=== PATIENT | male | born 1960 | race Caucasian/White ===

== ENCOUNTER 2016-08-21 13:22 | Day surgery (SDC) | payer BC ==
--- NOTE | ~2016-08-21 | OP ---
Record Of Operation [facility] [address] [place]. [address] NAME: SHEA BRADFORD : 56 STATUS : REG [facility] [place] PAT#: [id number] AGE: 56 ADM/REG DATE : 08/21/16 MR#: [id number] REPORT SERV DATE: 08/21/16 DICTATED BY: KERVIN MARTELL III DATE: 08/21/16 REPORT STATUS : Draft TRANSCRIBED BY: MODL DATE: 08/21/16 DATE OF PROCEDURE: 08/21/2016 PROCEDURE: I and D of scrotal abscess. PREOPERATIVE DIAGNOSIS: Scrotal abscess. POSTOPERATIVE DIAGNOSIS: Scrotal abscess. ANESTHESIA: General. SURGEON: Kervin Martell M.D. PROCEDURE IN DETAIL: Following induction of adequate general anesthesia, the patient was placed in the frogleg position, prepped and draped in a sterile fashion. The scrotal abscess had come to a hit, it was approximately 3 cm. An incision was made through this with approximately 5 mL to 10 mL of purulence. This was cultured. The wound was open enough to admit a finger and the area explored digitally. It was contained, did not appear to have any tracts into the scrotum itself. We irrigated. There were several bleeders that were cauterized and I probed it carefully with hemostat. Could not find any tracts. There was induration deep to the abscess cavity, but I could not find any communication with any other pocket of fluid. The wound was then packed with iodoform gauze. Mesh panties will be placed and I have discussed the care with the , who will repack the wound every 24 hours or as needed until I see him in the office on Wednesday. He was given vancomycin and Levaquin preop and Levaquin for the next five to six days. Blood loss was minimal. OB/MODL Kervin Martell III, M.D. / [id number] CC: Meaghan Delaney III, M.D.
[~2016-08-21 13:22] MED LIST: ACCUPRIL40 MG PO; ASAB PO; ATV1 PO; AVAP150 PO; LISINOPRIL40 MG PO; LOP25 PO; LORT7 PO; NEUR800 PO; OXYCOD PO; OXYIR5 MG PO; PRILO PO; V5 PO; VALIUM10 MG PO; ZOL50 PO
[2016-08-21 14:09] LABS: BASOPHILS 0.3 %; BASOPHILS ABSOLUTE 0.04 10/3/uL (0.0-0.16); EOSINOPHILS 0.8 %; HEMATOCRIT 48.7 % (40.0-51.0); HEMOGLOBIN 16.3 g/dL (13.6-17.8); IMMATURE GRANULOCYTES 0.2 %; IMMATURE GRANULOCYTES ABSOLUTE 0.03 10/3/uL (0.0-0.11); LYMPHOCYTES 20.5 %; LYMPHOCYTES ABSOLUTE 2.67 10/3/uL (0.67-4.30); MEAN CORPUS HGB CONC 33.5 g/dL (32.0-36.0); MEAN CORPUSCULAR VOLUME 86.7 fL (80-100); MEAN PLATELET VOLUME 11.5 fL (9.2-13.0); MONOCYTES 11.5 %; NEUTROPHILS 66.7 %; PLATELET COUNT 195 10/3/uL (150-400); RBC DISTRIBUTION WIDTH 12.9 % (12.0-16.0); RED CELL COUNT 5.62 10/6/uL (4.7-6.1)
[2016-08-21 14:11] LABS: MANUAL DIFF NO %
[2016-08-21 14:19] LABS: CALCIUM, SERUM 8.6 MG/DL (8.5-10.4); CHLORIDE, SERUM 102 MMOL/L (96-112); CO2 (CARBON DIOXIDE) 29 MMOL/L (24-34); GFR AFRICAN AMERICAN 77 ML/MIN (>=60); GFR NON AFRICAN AMERICAN 66 ML/MIN (>=60); GLUCOSE, SERUM 104 MG/DL (60-99); SODIUM, SERUM 138 MMOL/L (135-148)
[2016-08-21 14:20] LABS: BUN (BLOOD UREA NITROGEN) 18 MG/DL (6-23)
[2016-08-21 14:25] LABS: ASCORBIC ACID (UR NOT ORDER) NEG (NEG); BILIRUBIN, URINE NEGATIVE (NEG); KETONE, URINE NEGATIVE (NEG); LEUKOCYTE ESTERASE(NOT OR NEG (NEG); WBC (NOT ORDERED) (RFLEX) 1 (0-5)
[2016-08-21] MEDS ORDERED: NEUR600 PO (14:58)
== END 2016-08-21 20:36 | disposition home or self-care (01) ==
LOC: SDC 13:22
PROVIDERS: Urology
PROC: 0V95XZZ Drainage of Scrotum, External Approach (ICD-10-PCS; principal; 2016-08-21 15:45)
DX: N49.2 Inflammatory disorders of scrotum (principal); I10 Essential (primary) hypertension; G47.30 Sleep apnea, unspecified; Z79.899 Other long term (current) drug therapy; Z79.01 Long term (current) use of anticoagulants; Z90.49 Acquired absence of other specified parts of digestive tract; Z98.890 Other specified postprocedural states; Z87.891 Personal history of nicotine dependence; Z87.442 Personal history of urinary calculi
CPT/HCPCS: 80048; 81001; 82962; 85025; 87015; 87070; 87075; 87102; 87116; 87205; 93005; A9270-GY; J2250; J2405; J3010; J3370